=== PATIENT | male | born 1945 | race Caucasian/White ===

== ENCOUNTER 2016-09-11 05:53 | Day surgery (SDC) | payer MEDICARE, OTHER ==
[2016-09-11] MEDS ORDERED: Lactated Ringers 1,000 ML IV SCH (06:30)
[2016-09-11] MEDS ORDERED: Versed 2 MG/2 ML Injection IV ONE (08:00)
[2016-09-11] MEDS ORDERED: DIPRIVAN 200 MG/20 ML IV ONE (08:00)
[2016-09-11] MEDS ORDERED: SUBLIMAZE 100 MCG/2 ML IV ONE (08:00)
--- NOTE | 2016-09-11 08:37 | OP ---
SURGERY DATE/TIME: 09/01/2016 0657 PREOPERATIVE DIAGNOSIS: History of colon polyps. POSTOPERATIVE DIAGNOSIS: Sigmoid polyps x2. Rectal polyp x1. PROCEDURE: Colonoscopy. SURGEON: Daniel Langley M.D. ANESTHESIA: MAC by Dion Melgar CRNA. . ESTIMATED BLOOD LOSS: Minimal. SPECIMENS: Two hot forceps polypectomies from the sigmoid colon and one cold forceps polypectomy from the rectum. DESCRIPTION OF PROCEDURE: After informed written consent was obtained, the patient was taken to the endoscopy suite. He underwent monitored anesthesia and digital rectal exam showed normal sphincter tone and no internal lesions. The scope was inserted in the rectum and sequentially the entire colonic mucosa was traversed. The level of cecum was reached and verified with direct visualization of ileocecal valve. However this was done with difficulty due to a tortuous colon. There were two sessile polyps encountered in the sigmoid region which were removed with hot forceps in their entirety with good hemostasis of the base. Upon withdrawal careful mucosal inspection revealed a moderate amount of liquid stool throughout the entire length of the colon. There was mild diverticulosis in the sigmoid colon as well. Prior to withdrawal retroflexion was performed which showed a small sessile polyp near the anal verge which was removed with cold forceps with minimal blood loss. The entire lesion was removed. The scope was removed and the patient was transferred to the recovery room in excellent condition.
[2016-09-11 08:52] VITALS: O2SAT 96
[2016-09-11 08:53] VITALS: BP 147/69; PULSE 73
== END 2016-09-11 09:00 | disposition home or self-care (01) ==
LOC: SDC 05:53
PROVIDERS: ATTEND Family Medicine
PROC: 0DBN8ZX Excision of Sigmoid Colon, Via Natural or Artificial Opening Endoscopic, Diagnostic (ICD-10-PCS; principal; 2016-09-11)
PROC: 0DBP8ZX Excision of Rectum, Via Natural or Artificial Opening Endoscopic, Diagnostic (ICD-10-PCS; 2016-09-11)
DX: D12.5 Benign neoplasm of sigmoid colon (principal); K62.1 Rectal polyp; I10 Essential (primary) hypertension
CPT/HCPCS: 00810; 36415; 88305; 99100; J2250; J2704; J3010